=== PATIENT | male | born 1960 | race Caucasian/White ===

== ENCOUNTER → 2018-06-14 | Outpatient (CLI) | payer OTHER ==
--- NOTE | 2018-06-14 17:26 | PE ---
EXAMINATION TYPE: PET CT fusion skull to thigh DATE OF EXAM: 06/14/2018 COMPARISON: NONE HISTORY: C 80.89 head and neck cancer. Recent positive biopsy 2-3 weeks ago. TECHNIQUE: Following the intravenous administration of 12.194 mCi of F-18 FDG, whole body images are performed from the skull base to the midthigh. Images are reviewed on the computer in the coronal, axial, and sagittal planes. Reconstructed rotating images are created on independent workstation and reviewed on the computer. A noncontrast CT is performed in conjunction with the PET scan. Dedicate d PET/CT imaging of the neck is also performed. SCAN: Initial Scan FINDINGS: SKULL BASE AND NECK: There is markedly enlarged right supraclavicular mass or lymph node that has ce ntral hypodense or necrotic component that does not show hypermetabolic uptake measuring roughly 4.5 cm AP diameter by 2.8 cm transversely axial image 59. Max SUV is 22.22. This is near level of SCM. Primary mucosal lesion in the oropharynx or hypopharynx is not definitively identified. Slightly asym metric hyperdense area right hypopharynx axial image 51 at level of epiglottis has max SUV 7.45 measu ring roughly 7 x 4 mm without definitive enhancing lesion on recent outside CT. CHEST, MEDIASTINUM, AND HILAR REGION: No areas of abnormal hypermetabolic uptake are identified. Unde rlying fairly moderate emphysematous change is present. ABDOMEN AND PELVIS: No suspicious areas of abnormal hypermetabolic uptake are seen. OSSEOUS STRUCTURES: No suspicious hypermetabolic uptake is present. OTHER CT: There are additional scattered prominent but subcentimeter lymph nodes throughout the neck without definitively abnormal enlarged hypermetabolic lymph nodes identified. There is mild to modera te calcified plaque right carotid bulb and mild calcified plaque left carotid bulb. There is coronary stent in the proximal to mid LAD. There is additional mild to moderate three-vessel coronary artery calcification. Tiny pericardial effusion inferiorly is seen. Normal-appearing appendix is seen inferiorly from base of cecum. There are few scattered diverticula in the left and sigmoid colon. Prostate gland is mildly enlarged in size, underlying BPH is felt pres ent. Bladder wall is mildly thickened presumed related to outlet obstruction from enlarged prostate g land. Correlate clinically. There is mild calcified plaque of aorta extending into iliac branch vessels. There is multilevel spurring of the spine. There is facet arthropathy lower lumbar levels seen. IMPRESSION: Known neoplasm redemonstrated right neck supraclavicular level without definitive evidenc e of primary mucosal lesion, additional adenopathy, or metastatic disease. I would advise direct visu alization of right epiglottic region due to slightly suspicious area noted above.
== END | disposition home or self-care (01) ==
LOC: RADPETMAIN 12:49
PROVIDERS: ATTEND Radiology Diagnostic Radiology
DX: C79.89 Secondary malignant neoplasm of other specified sites (principal); J39.2 Other diseases of pharynx
CPT/HCPCS: 78815; A9552

== ENCOUNTER → 2023-06-28 | Outpatient (CLI) | payer MEDICARE ==
--- NOTE | 2023-06-28 13:27 | CTL ---
EXAMINATION TYPE: CT Low Dose Lung DATE OF EXAM ORDERED: 06/28/2023 HISTORY: Lung cancer screening CT DLP: 95.[address] CTDI: 2.7 mGy Automated exposure control for dose reduction was used. Comparison: None. This is the first screening. FINDINGS: There are marked emphysematous changes and mild pleural-parenchymal scarring in the lung apices. A small focal area of groundglass density adjacent to the left major fissure There are no suspicious lung masses or nodules. There is no airspace/consolidative density or abnormal interstitial density. There is no pleural effusion, pleural thickening or pneumothorax. The great vessels chest are normal and there is no mediastinal, hilar or axillary adenopathy. Limited scanning through the upper abdomen reveals no gross abnormality. There are no focal osseous abnormalities. IMPRESSION: 1. Lung RADS category 2 benign findings. Routine screening at yearly intervals. 2. Marked emphysematous changes. 3. No acute cardiopulmonary disease.
== END | disposition home or self-care (01) ==
LOC: RADCTMAIN 10:17
PROVIDERS: ATTEND Internal Medicine
DX: Z12.2 Encounter for screening for malignant neoplasm of respiratory organs (principal); J43.9 Emphysema, unspecified; Z87.891 Personal history of nicotine dependence
CPT/HCPCS: 71271

== ENCOUNTER 2023-08-16 08:57 | Day surgery (SDC) | payer MEDICARE, OTHER ==
[2023-08-13 14:14] VITALS: BMI 25.1
[~2023-08-16 08:57] MED LIST: LACTATED RINGERS 1,000 ML IV SCH; LIDOCAINE 1% (10MG/ML) FOR IV START INTRADERMA PRN
[2023-08-16] MEDS ORDERED: LACTATED RINGERS 1,000 ML IV ONE (09:27)
[2023-08-16 09:35] VITALS: TEMP 97.3
[2023-08-16] MEDS ORDERED: PROPOFOL 10 MG/ML 20 ML VIAL IV ONE (10:04)
--- NOTE | 2023-08-16 10:31 | P.PCN ---
Date of Procedure: 08/16/23 Procedure(s) Performed: BRIEF HISTORY: Patient is a 63-year-old pleasant male scheduled for an elective colonoscopy as a part of evaluation of prior history of colon polyps. PROCEDURE PERFORMED: Colonoscopy Snare Polypectomy. PREOPERATIVE DIAGNOSIS: History of colon polyps. IV sedation per Anesthesia. PROCEDURE: After informed consent was obtained, the patient, was brought into the endoscopy unit. IV sedation was administered by Anesthesia under continuous monitoring. Digital rectal examination was normal. Initially the Olympus CF-160 flexible video colonoscope was then inserted in the rectum, gradually advanced into the cecum without any difficulty. Careful examination was performed as the scope was gradually being withdrawn. Ileocecal valve and the appendiceal orifice were visualized and appeared normal. Prep was excellent. Mucosa of the cecum at 3 mm polyp that was removed by cold biopsy. In the ascending colon there was a 3 mm and a 4 mm polyp that was removed by cold biopsy. In the transverse colon there was a 5 mm and 7 mm polyp that was removed by cold snare polypectomy. In the descending colon there was a 5 mm polyp removed by cold snare polypectomy. Rest of the descending colon, sigmoid colon, and rectum appeared normal. Scattered sigmoid diverticula cyst. Retroflexion was performed in the rectum and no lesions were seen. The patient tolerated the procedure well. IMPRESSION: 3 mm cecal polyp status post cold biopsy 3 mm and 4 mm ascending colon polyp status post cold biopsy 5 mm and 7 mm transverse colon polyp status post cold snare polypectomy 5 mm ascending colon polyp status post polypectomy RECOMMENDATIONS: Findings of this examination were discussed with the patient as his family. He was advised to follow with the absence results. If the biopsy result adenoma he can have a repeat colonoscopy in 3 years..
[2023-08-16 11:04] VITALS: RESP 16
[2023-08-16 11:27] VITALS: BP 138/85; PULSE 91
== END 2023-08-16 11:17 | disposition home or self-care (01) ==
LOC: ORWHC2ENDO 08:57
PROVIDERS: ATTEND Internal Medicine Gastroenterology
DX: Z12.11 Encounter for screening for malignant neoplasm of colon (principal); K57.30 Diverticulosis of large intestine without perforation or abscess without bleeding; D12.0 Benign neoplasm of cecum; D12.2 Benign neoplasm of ascending colon; D12.3 Benign neoplasm of transverse colon; D12.4 Benign neoplasm of descending colon; I25.2 Old myocardial infarction; I25.10 Atherosclerotic heart disease of native coronary artery without angina pectoris; I10 Essential (primary) hypertension; E78.5 Hyperlipidemia, unspecified; Z95.5 Presence of coronary angioplasty implant and graft; J44.9 Chronic obstructive pulmonary disease, unspecified; F17.200 Nicotine dependence, unspecified, uncomplicated; F41.9 Anxiety disorder, unspecified; F32.A Depression, unspecified; F12.90 Cannabis use, unspecified, uncomplicated; Z79.811 Long term (current) use of aromatase inhibitors; Z79.82 Long term (current) use of aspirin; Z79.899 Other long term (current) drug therapy; Z86.010 Personal history of colon polyps; Z85.828 Personal history of other malignant neoplasm of skin; Z85.9 Personal history of malignant neoplasm, unspecified
CPT/HCPCS: 88305; 45380; 45385; J2704

== ENCOUNTER 2023-08-26 10:11 | Emergency (ER) | payer MEDICARE ==
--- NOTE | 2023-08-26 10:47 | ED ---
General Adult HPI - General Source: patient, RN notes reviewed Mode of arrival: ambulatory Limitations: no limitations <Yann Mcelroy - Last Filed: 08/26/23 10:44> <Javier Sparrow - Last Filed: 08/26/23 12:26> - General Chief complaint: Recheck/Abnormal Lab/Rx Stated complaint: bumps on tounge Time Seen by Provider: 08/26/23 10:44 - History of Present Illness Initial comments: 63-year-old male presents emergency Department chief complaint of enlarging lumps on his tongue, mouth and throat region. He states he has a history of cancer in which she had radiation chemotherapy at [facility] 5 years ago. Patient states that she also recently tested positive for squamous cell carcinoma from dermatology. Patient states that he did not make an appointment with his ENT and Sai as he does not have transportation. Patient denies any fevers. (Yann Mcelroy) Dictation was produced using [employer] dictation software. please excuse any grammatical, word or spelling errors. Chief Complaint: Patient is a 63-year-old male presents to the ER for abnormal tongue History of Present Illness: Patient is a 63-year-old male he states that he feels like his tongue is abnormal. He has history of tongue cancer. He has been in remission for the last 5 years. He had received chemotherapy. He is told that he had tongue cancer secondary to cigarette smoking. He received his chemotherapy and tongue cancer care at [facility]. He does not remember his doctor's names. Patient has no other complaints. The ROS documented in this emergency department record has been reviewed and confirmed by me. Those systems with pertinent positive or negative responses have been documented in the HPI. All other systems are other negative and/or noncontributory. (aJvier Sparrow) - Related Data Home Medications Medication Instructions Recorded Confirmed Aspirin [Adult Low Dose Aspirin EC] 81 mg PO DAILY 08/13/23 08/13/23 Famotidine 40 mg PO DAILY 08/13/23 08/13/23 Levothyroxine Sodium 25 mcg PO DAILY 08/13/23 08/13/23 Metoprolol Succinate [Toprol XL] 80 mg PO DAILY 08/13/23 08/13/23 Rosuvastatin Calcium [Crestor] 40 mg PO DAILY 08/13/23 08/13/23 buPROPion XL [Wellbutrin XL] 150 mg PO BID 08/13/23 08/13/23 lisinopriL [Zestril] 5 mg PO DAILY 08/13/23 08/13/23 Allergies Allergy/AdvReac Type Severity Reaction Status Date / Time No Known Allergies Allergy Verified 08/26/23 10:39 Review of Systems ROS Other: All systems not noted in ROS Statement are negative. <Yann Mcelroy - Last Filed: 08/26/23 10:44> ROS Other: All systems not noted in ROS Statement are negative. <Javier Sparrow - Last Filed: 08/26/23 12:26> ROS Statement: Those systems with pertinent positive or pertinent negative responses have been documented in the HPI. Past Medical History Past Medical History: Coronary Artery Disease (CAD), Cancer, COPD, GERD/Reflux, Hyperlipidemia, Hypertension, Myocardial Infarction ([place]), Thyroid Disorder Additional Past Medical History / Comment(s): squamous cell carcinoma neck and tongue 2018 feeding tube , chemo, radiation. Last Myocardial Infarction Date:: 2011 History of Any Multi-Drug Resistant Organisms: None Reported Past Surgical History: Heart Catheterization With Stent, Orthopedic Surgery Additional Past Surgical History / Comment(s): amputaation right hand 2 fingers missing Past Anesthesia/Blood Transfusion Reactions: No Reported Reaction Additional Past Anesthesia/Blood Transfusion Reaction / Comment(s): no blood transfusion Date of Last Stent Placement:: 3 stents 2011 Past Psychological History: Anxiety, Depression Smoking Status: Never smoker Past Alcohol Use History: Occasional Past Drug Use History: Marijuana - Past Family History Sister(s) Family Medical History: Cancer Additional Family Medical History / Comment(s): breast <Yann Mcelroy - Last Filed: 08/26/23 10:44> General Exam Limitations: no limitations <Yann Mcelroy - Last Filed: 08/26/23 10:44> <Javier Sparrow - Last Filed: 08/26/23 12:26> - General Exam Comments Initial Comments: Visual Physical Exam Vital signs reviewed General: Well-appearing, nontoxic, no acute distress. Head: Normocephalic, atraumatic Eyes: PERRLA, EOMI ENT: Airway patent Chest: Nonlabored breathing Skin: No visual rash, normal skin tone Neuro: Alert and oriented 3 Musculoskeletal: No gross abnormalities (Yann Mcelroy) PHYSICAL EXAM: General Impression: Alert and oriented x3, not in acute distress HEENT: Normocephalic atraumatic, extra-ocular movements intact, pupils equal and reactive to light bilaterally, mucous membranes moist. Oral exam: Large papilla to the base of the tongue posteriorly Cardiovascular: Heart regular rate and rhythm Chest: Able to complete full sentences, no retractions, no tachypnea Musculoskeletal: no peripheral edema Motor: no focal deficits noted Neurological: CN II-XII grossly intact, no focal motor or sensory deficits noted Skin: Intact with no visualized rashes Psych: Normal affect and mood (Javier Sparrow) Course Vital Signs 08/26/23 10:35 Temperature 98.9 F Pulse Rate 74 Respiratory 18 Rate Blood Pressure 135/78 O2 Sat by Pulse 98 Oximetry Medical Decision Making <Yann Mcelroy - Last Filed: 08/26/23 10:44> - Lab Data Result diagrams: 08/26/23 10:57 08/26/23 10:57 <Javier Sparrow - Last Filed: 08/26/23 12:26> - Medical Decision Making I performed a quick note portion of this chart signed Yann Mcelroy PA-C (Yann Mcelroy) Was pt. sent in by a medical professional or institution (TATE Simms, HR CLERK, urgent care, hospital, or fci...) When possible be specific @ -[No] Did you speak to anyone other than the patient for history (EMS, parent, family, police, friend...)? What history was obtained from this source @ -[No] Did you review nursing and triage notes (agree or disagree)? Why? @ -[I reviewed and agree with nursing and triage notes] Were old charts reviewed (outside hosp., previous admission, EMS record, old EKG, old radiological studies, urgent care reports/EKG's, fci records)? Report findings @ -[No old charts were reviewed] Differential Diagnosis (chest pain, altered mental status, abdominal pain women, abdominal pain men, vaginal bleeding, musculoskeletal, weakness, fever, dyspnea, syncope, headache, dizziness, GI bleed, back pain, seizure, CVA, palpatations, mental health)? @ -[not applicable] EKG interpreted by me (3pts min.). @ -[None done] X-rays interpreted by me (1pt min.). @ -[None done] CT interpreted by me (1pt min.). @ -[None done] U/S interpreted by me (1pt. min.). @ -[None done] What testing was considered but not performed or refused? (CT, X-rays, U/S, labs)? Why? @ -[None] What meds were considered but not given or refused? Why? @ -[None] Did you discuss the management of the patient with other professionals (professionals i.e. , PA, HR CLERK, lab, RT, psych nurse, social worker aide, fitness assistant, teacher, information assurance officer, piano case and bench assembler)? Give summary @ -[No] Was smoking cessation discussed for >3mins.? @ -[No] Was critical care preformed (if so, how long)? @ -[No] Were there social determinants of health that impacted care today? How? (H omelessness, low income, unemployed, alcoholism, drug addiction, transportation, low edu. Level, literacy, decrease access to med. care, detention, rehab)? @ -[No] Was there de-escalation of care discussed even if they declined (Discuss DNR or withdrawal of care, Hospice)? DNR status @ -[No] What co-morbidities impacted this encounter? (DM, HTN, Smoking, COPD, CAD, Cancer, CVA, ARF, Chemo, Hep., AIDS, mental health diagnosis, sleep apnea, morbid obesity)? @ -[None] Was patient admitted / discharged? Hospital course, mention meds given and route, prescriptions, significant lab abnormalities, going to OR and other pertinent info. @ -63-year-old male presents to the emergency Department with abnormal sensation of the tongue. States that his symptoms feel like when he was diagnosed with tongue cancer several years ago. Vital signs are stable. Patient no acute distress. Patient does have large papilla to the base of his tongue. There is suspicion that he is having recurrence of his tongue cancer. Patient strongly urged to follow-up with his primary care doctor and tongue specialist that he seen 5 years ago. He is agreeable with plan. Return precautions discussed. Undiagnosed new problem with uncertain prognosis? @ -[No] Drug Therapy requiring intensive monitoring for toxicity (Heparin, Nitro, Insulin, Cardizem)? @ -[No] Were any procedures done? @ -[No] Diagnosis/symptom? Acute, or Chronic, or Acute on Chronic? Uncomplicated (without systemic symptoms) or Complicated (systemic symptoms)? @ -Tongue cancer Side effects of treatment? @ -[No] Exacerbation, Progression, or Severe Exacerbation? @ -[No] Poses a threat to life or bodily function? How? (Chest pain, [place], [place], pneumonia, PE, COPD, DKA, ARF, appy, cholecystitis, CVA, Diverticulitis, Homicidal, Suicidal, threat to staff... and all critical care pts) @ -[No] (Javier Sparrow) - Lab Data Lab Results 08/26/23 08/26/23 08/26/23 Range/Units 10:57 10:57 10:57 WBC 10.3 (3.8-10.6) k/uL RBC 4.99 (4.30-5.90) m/uL Hgb 15.9 (13.0-17.5) gm/dL Hct 49.3 (39.0-53.0) % MCV 98.9 (80.0-100.0) fL MCH 31.9 (25.0-35.0) pg MCHC 32.3 (31.0-37.0) g/dL RDW 12.7 (11.5-15.5) % Plt Count 225 (150-450) k/uL MPV 8.9 Neutrophils % 74 % Lymphocytes % 15 % Monocytes % 7 % Eosinophils % 2 % Basophils % 0 % Neutrophils # 7.6 (1.3-7.7) k/uL Lymphocytes # 1.5 (1.0-4.8) k/uL Monocytes # 0.7 (0-1.0) k/uL Eosinophils # 0.2 (0-0.7) k/uL Basophils # 0.0 (0-0.2) k/uL Sodium 138 (137-145) mmol/L Potassium 4.8 (3.5-5.1) mmol/L Chloride 100 (98-107) mmol/L Carbon Dioxide 26 (22-30) mmol/L Anion Gap 12 mmol/L BUN 11 (9-20) mg/dL Creatinine 1.07 (0.66-1.25) mg/dL Est GFR (CKD-EPI)AfAm 86 (>60 ml/min/1.73 sqM) Est GFR (CKD-EPI)NonAf 75 (>60 ml/min/1.73 sqM) Glucose 120 H (74-99) mg/dL Calcium 9.9 (8.4-10.2) mg/dL Total Bilirubin 0.7 (0.2-1.3) mg/dL AST 34 (17-59) U/L ALT 25 (4-49) U/L Alkaline Phosphatase 59 (38-126) U/L C-Reactive Protein 1.0 H (<1.0) mg/dL Total Protein 7.7 (6.3-8.2) g/dL Albumin 4.8 (3.5-5.0) g/dL Heterophile Antibody (Negative) Group A Strep (PCR) NOT DETECTED (Not Detectd) 08/26/23 Range/Units 11:00 WBC (3.8-10.6) k/uL RBC (4.30-5.90) m/uL Hgb (13.0-17.5) gm/dL Hct (39.0-53.0) % MCV (80.0-100.0) fL MCH (25.0-35.0) pg MCHC (31.0-37.0) g/dL RDW (11.5-15.5) % Plt Count (150-450) k/uL MPV Neutrophils % % Lymphocytes % % Monocytes % % Eosinophils % % Basophils % % Neutrophils # (1.3-7.7) k/uL Lymphocytes # (1.0-4.8) k/uL Monocytes # (0-1.0) k/uL Eosinophils # (0-0.7) k/uL Basophils # (0-0.2) k/uL Sodium (137-145) mmol/L Potassium (3.5-5.1) mmol/L Chloride (98-107) mmol/L Carbon Dioxide (22-30) mmol/L Anion Gap mmol/L BUN (9-20) mg/dL Creatinine (0.66-1.25) mg/dL Est GFR (CKD-EPI)AfAm (>60 ml/min/1.73 sqM) Est GFR (CKD-EPI)NonAf (>60 ml/min/1.73 sqM) Glucose (74-99) mg/dL Calcium (8.4-10.2) mg/dL Total Bilirubin (0.2-1.3) mg/dL AST (17-59) U/L ALT (4-49) U/L Alkaline Phosphatase (38-126) U/L C-Reactive Protein (<1.0) mg/dL Total Protein (6.3-8.2) g/dL Albumin (3.5-5.0) g/dL Heterophile Antibody Negative (Negative) Group A Strep (PCR) (Not Detectd) Disposition <Yann Mcelroy - Last Filed: 08/26/23 10:44> Is patient prescribed a controlled substance at d/c from ED?: No Time of Disposition: 12:25 <Javier Sparrow - Last Filed: 08/26/23 12:26> Clinical Impression: Tongue symptom Disposition: HOME SELF-CARE Condition: Fair Instructions (If sedation given, give patient instructions): Mouth Cancer (DC) Referrals: Reed Crowley MD [Primary Care Provider] - 1-2 days Trevor Blevins MD [STAFF PHYSICIAN] - 1-2 days
[2023-08-26 10:59] VITALS: RESP 18
[2023-08-26 11:25] LABS: Basophils % (A) 0 %; Eosinophils # (A) 0.2 k/uL (0-0.7); Eosinophils % (A) 2 %; HCT 49.3 % (39.0-53.0); HGB 15.9 gm/dL (13.0-17.5); Lymphocytes # (A) 1.5 k/uL (1.0-4.8); Lymphocytes % (A) 15 %; MCH 31.9 pg (25.0-35.0); MCHC 32.3 g/dL (31.0-37.0); MCV 98.9 fL (80.0-100.0); Mean Platelet Volume 8.9; Monocytes # (A) 0.7 k/uL (0-1.0); Monocytes % (A) 7 %; Neutrophils # (A) 7.6 k/uL (1.3-7.7); Neutrophils % (A) 74 %; Platelet Count 225 k/uL (150-450); RBC 4.99 m/uL (4.30-5.90); RDW 12.7 % (11.5-15.5); WBC 10.3 k/uL (3.8-10.6)
[2023-08-26 11:45] LABS: ALT 25 U/L (4-49); AST 34 U/L (17-59); African American GFR (CKD) 86 (>60 ml/min/1.73 sqM); Albumin 4.8 g/dL (3.5-5.0); Alkaline Phosphatase 59 U/L (38-126); Anion Gap 12 mmol/L; Blood Urea Nitrogen 11 mg/dL (9-20); Calcium 9.9 mg/dL (8.4-10.2); Carbon Dioxide 26 mmol/L (22-30); Chloride 100 mmol/L (98-107); Glucose 120 mg/dL (74-99); Non-African American GFR(CKD) 75 (>60 ml/min/1.73 sqM); Potassium 4.8 mmol/L (3.5-5.1); Sodium 138 mmol/L (137-145); Total Bilirubin 0.7 mg/dL (0.2-1.3); Total Protein 7.7 g/dL (6.3-8.2)
--- NOTE | 2023-08-26 11:55 | CT ---
EXAMINATION TYPE: CT soft tissue neck w con CT DLP: 267.5 mGycm, Automated exposure control for dose reduction was used. DATE OF EXAM: 08/26/2023 11:43 AM COMPARISON: PET/CT 06/14/2018, CT neck 05/21/2018. CLINICAL INDICATION:Male, 63 years old with history of hx CA, oral swelling, difficulty swallowing; P HH, Hx tongue ca, c/o oral swelling, difficulty swallowing. TECHNIQUE: Standard enhanced CT of the neck following intravenous administration of 100 cc of Isovue 300. Axial sections with coronal and sagittal reformats were obtained. FINDINGS: Brain: Visualized portions are grossly unremarkable. Orbits: Unremarkable Sinuses: Mucosal thickening of the right maxillary sinus. Mild mucosal thickening of the ethmoid sinu ses. Mild mucosal thickening of the sphenoid sinus. Suprahyoid Neck: The oropharynx, oral cavity, parapharyngeal and retropharyngeal spaces are clear and symmetric. The nasopharynx is unremarkable. Infrahyoid Neck: The larynx, hypopharynx, and supraglottic area are clear and symmetric. Parotid Glands: Unremarkable. Submandibular Glands: Unremarkable. Musculoskeletal: Degenerative disc disease changes of the visualized spine are present. Lymph nodes: No pathologic enlarged lymph nodes identified.. Vascular structures: Minimal atherosclerotic calcifications of the internal carotid arteries. Thoracic Inlet/airway: Airway is patent. Mild centrilobular emphysematous changes. Soft tissues/Thyroid: Thyroid and remainder of the soft tissues are unremarkable. Previously seen rig ht supraclavicular mass is no longer visualized. Other: none. IMPRESSION 1. No definite evidence for abscess or significant abnormality. 2. Paranasal sinus disease. 3. Mild COPD changes.
[2023-08-26 13:15] VITALS: BP 159/93; PULSE 73; TEMP 98.1
== END 2023-08-26 13:15 | disposition home or self-care (01) ==
LOC: EC 10:11
DX: C02.9 Malignant neoplasm of tongue, unspecified (principal); I10 Essential (primary) hypertension; I25.2 Old myocardial infarction; I25.10 Atherosclerotic heart disease of native coronary artery without angina pectoris; J44.9 Chronic obstructive pulmonary disease, unspecified; K21.9 Gastro-esophageal reflux disease without esophagitis; E78.5 Hyperlipidemia, unspecified; F32.A Depression, unspecified; F41.9 Anxiety disorder, unspecified; E07.9 Disorder of thyroid, unspecified; F12.90 Cannabis use, unspecified, uncomplicated; Z79.82 Long term (current) use of aspirin; Z79.890 Hormone replacement therapy; Z79.899 Other long term (current) drug therapy
CPT/HCPCS: 36415; 87651; 80053; 85025; 86140; 86308; 70491; 99283; Q9967